=== PATIENT | male | born 1995 ===

== ENCOUNTER 2018-02-01 09:38 | Emergency (ER) | payer BC ==
[2018-02-01] MEDS ORDERED: ONDANSETRON INJ 4 MG/2 ML VIAL IV ONE (10:18)
[2018-02-01] MEDS ORDERED: SODIUM CHLORIDE 0.9% 1000ML 1,000 ML IVS ONE (10:19)
[2018-02-01] MEDS ORDERED: ALUM & MAG HYDROX-SIMETHICONE 30 ML, LIDOCAINE VISCOUS 2% 15 ML PO ONE ×2 (10:40)
[2018-02-01] MEDS ORDERED: ALUM & MAG HYDROX-SIMETHICONE 30 ML UD ONE (10:41)
[2018-02-01] MEDS ORDERED: LIDOCAINE HCL 2% (MOUTH-THROAT) 15 ML UD ONE (10:41)
--- NOTE | 2018-02-01 10:53 | ED.PDOC ---
History of Present Illness - General Chief Complaint: GI Problem Stated Complaint: n/v/d Time Seen by Provider: 02/01/18 10:46 Information Source: patient, family Exam Limitations: no limitations - History of Present Illness Initial Comments: NVD, STARTED YESTERDAY. SEVERAL TIMES THROUGHOUT THE NIGHT AND TODAY. POOR PO BECAUSE VOMITS WHEN DRINKS WATER. HADN'T VOIDED IN 8 HRS. BURNING SENSATION IN STOMACH/EPIGASTRIC. NO BLACK ABD PAIN. NO PAIN IN RLQ. Abdominal Pain Onset Location: epigastric Quality: mild, burning Timing/Duration: 24 hours Improving Factors: nothing Worsening Factors: nothing Associated Symptoms: diarrhea, nausea/vomiting Review of Systems - Review of Systems Constitutional: States: weakness. Denies: chills, diaphoresis, fever EENTM: Denies: ear pain, nose congestion Respiratory: Denies: cough, short of breath Cardiology: Denies: chest pain, palpitations Gastrointestinal/Abdominal: States: diarrhea, nausea, vomiting. Denies: abdominal pain Genitourinary: Denies: dysuria, frequency, pain Musculoskeletal: Denies: back pain, neck pain Skin: Denies: change in color, lesions Neurological: Denies: paresthesia, tingling Endocrine: Denies: excessive sweating, increased urine Hematologic/Lymphatic: Denies: easy bleeding, easy bruising All other Systems: Reviewed and Negative Past Medical History (General) - Patient Medical History Hx Asthma: Yes Hx Diabetes: No Hx Gastroesophageal Reflux: No Surgical History: other Family Medical History - Family History Mother Family History: No Known Physical Exam - Physical Exam General Appearance: Alert, Well Developed Eyes, Ears, Nose, Throat Exam: PERRL/EOMI, normal ENT inspection, TMs normal, other - MM DRY Neck: non-tender, full range of motion, supple Respiratory: chest non-tender, lungs clear, normal breath sounds Cardiovascular/Chest: normal peripheral pulses, regular rate, rhythm, no murmur Peripheral Pulses: 2+ Gastrointestinal/Abdominal: normal bowel sounds, soft, no organomegaly, no pulsatile mass, tenderness - MILDLY IN EPIGASTRIC. REMAINDER OF ABD NTTP. LLQ NTTP. PERIUMBILICAL FEELS "CRAMPY". Back Exam: normal inspection, no CVA tenderness Extremity: normal range of motion, normal inspection Neurologic: alert, normal mood/affect Skin Exam: normal color, warm/dry Lymphatic: no adenopathy Progress - Results/Orders Results/Orders: ZOFRAN DIDN'T HELP NAUSEA THUS GIVING PHENERGAN. PHENERGAN HELPED NAUSEA. STILL HAS EPIGASTRIC BURNING AFTER MYLANTA/LIDOCAINE. WILL GIVE OMEPRAZOLE AND TUMS. LABS UNREMARKABLE - CBC, LIPASE, BILRUBIN. CMP WNL EXCEPT K+ 3.3. GIVING KCL TABLET. UA BLOOD - WILL INSTRUCT TO REPEAT WITH PCP IN 1 MO TO ENSURE CLEARS. LOW GRADE TEMP, 100.3. ACUTE VIRAL GASTROENTERITIS. DEHYDRATION - GAVE NS BOLUS. SAFE FOR DC TO HOME. Departure - Departure Clinical Impression: Viral gastroenteritis, Dehydration, Low grade fever, Reflux gastritis, Hypokalemia, Nausea & vomiting, Diarrhea Hematuria Qualifiers: Hematuria type: asymptomatic microscopic Qualified Code(s): R31.21 - Asymptomatic microscopic hematuria Disposition: Discharge to Home or Self Care Condition: Good Departure Forms: ED Discharge - Pt. Copy, Patient Portal Self Enrollment Instructions: Viral Gastroenteritis, Adult (DC) Diet: bland diet Activity: increase activity as tolerated Prescriptions: Promethazine HCl 25 mg PO Q6HR PRN #30 tab PRN Reason: Nausea/Vomiting Home Medications: Ambulatory Orders Promethazine HCl 25 mg PO Q6HR PRN #30 tab 02/01/18 Additional Instructions: Drink plenty of fluids and get lots of rest. Please see your family doctor in 2 weeks to follow-up and to repeat the urinalysis to ensure the blood in the urine has cleared up.
[2018-02-01] MEDS ORDERED: PROMETHAZINE HCL INJ 25 MG in SODIUM CHLORIDE 0.9% 50ML 50 ML IVPB ONE (10:56)
[2018-02-01] MEDS ORDERED: SODIUM CHLORIDE 0.9% 50ML 50 ML ONE (11:05)
[2018-02-01] MEDS ORDERED: PROMETHAZINE HCL INJ 25 MG/ML VIAL ONE (11:05)
[2018-02-01] MEDS ORDERED: OMEPRAZOLE CAP 20 MG CAP PO ONE (12:01)
[2018-02-01] MEDS ORDERED: CALCIUM CARBONATE (ANTACID) 500 MG CHEWABLE TAB PO ONE (12:01)
[2018-02-01] MEDS ORDERED: POTASSIUM CHLORIDE 20 MEQ TAB PO ONE (13:15)
[2018-02-01 13:52] VITALS: BP 107/80; TEMP 100.4; O2SAT 99
[2018-02-01] MEDS ORDERED: ACETAMINOPHEN 500 MG TAB PO ONE (13:52)
== END 2018-02-01 13:56 | disposition home or self-care (01) ==
LOC: ER 09:38
DX: A08.4 Viral intestinal infection, unspecified (principal); K29.60 Other gastritis without bleeding; E86.0 Dehydration; E87.6 Hypokalemia; R31.21 Asymptomatic microscopic hematuria; J45.909 Unspecified asthma, uncomplicated
CPT/HCPCS: 36415; 80053; 81001; 82150; 83690; 85025; A4216; J2405; J2550; J7030